=== PATIENT | female | born 1985 | race Caucasian/White ===

== ENCOUNTER 2020-01-11 07:01 | Outpatient (CLI) | payer BC, OTHER ==
[2020-01-12 12:59] LABS: SARS-CoV-2 MS2 Positive; SARS-CoV-2 N Gene Negative; SARS-CoV-2 S Gene Negative; SARS-CoV-2 by NAA Not Detected (NotDetected); SARS-CoV-2 orf1ab Negative
== END 2020-01-11 07:02 | disposition home or self-care (01) ==
LOC: LABBT 07:01
PROVIDERS: ATTEND Neurological Surgery
DX: M50.222 Other cervical disc displacement at C5-C6 level (principal); M79.602 Pain in left arm; Z20.828 Contact with and (suspected) exposure to other viral communicable diseases
CPT/HCPCS: 87635; U0003

== ENCOUNTER 2020-01-14 06:37 | Day surgery (SDC) | payer BC ==
[2020-01-13 10:17] VITALS: BMI 30.1
--- NOTE | 2020-01-13 14:02 | HP ---
HISTORY OF PRESENT ILLNESS: Ms. Noguera is a pleasant 34-year-old woman, presenting for evaluation of a cervical spinal problem at the recommendation of Dr. Ric Irby. Specifically, she is experiencing left upper extremity pain with numbness. I would best fit a left C6 radiculopathy. She has an MRI from [facility] that reveals a left-sided disk herniation that would fit this well. PAST MEDICAL HISTORY: Significant for hypertension. CURRENT MEDICATIONS: 1. Lisinopril. 2. Lexapro. 3. Robaxin. 4. Ritalin. 5. Diclofenac. ALLERGIES: NO KNOWN DRUG ALLERGIES. PAST SURGICAL HISTORY: 1. Hysterectomy. 2. Cardiac ablation for SVT. 3. Right shoulder rotator cuff repair. 4. Right foot navicular bone resection. 5. Right foot plantar fascia release. ASSESSMENT: Cervical radiculopathy. PLAN: Dr. Noguera met with the patient, reviewed imaging, advocated for C5-C6 ACDF. He explained to the patient about the risks, benefits, and alternatives to the procedure. The patient expressed understanding and elected to move forward with surgery as discussed. I do believe that the patient is mentally competent and capable of making medical decisions for herself. We will move forward with surgery as planned. Job ID: [id number]
[2020-01-14] MEDS ORDERED: Scopolamine 1.5 mg/72 hour Patch ONE (07:52)
[2020-01-14 08:13] LABS: Anion Gap 14 mmol/L (10-20); BUN (Urea Nitrogen) 11 mg/dL (7.0-18.7); Calc. Creatinine Clearance 130 mL/min (70-130); Calcium 9.2 mg/dL (7.8-10.44); Carbon Dioxide 26 mmol/L (22-29); Chloride 104 mmol/L (98-107); Estimated GFR-MDRD 90; Glucose 93 mg/dL (70-105); Potassium 3.7 mmol/L (3.5-5.1); Sodium 140 mmol/L (136-145)
[2020-01-14] MEDS ORDERED: Fentanyl 100 MCG/2 ML VIAL ONE ×4 (08:19→10:47)
[2020-01-14] MEDS ORDERED: Bupivacaine PF 0.5% 30 ML VIAL ONE (08:23)
[2020-01-14] MEDS ORDERED: SUGAMMADEX SODIUM 200 MG/2 ML VIAL ONE (09:40)
--- NOTE | 2020-01-14 10:14 | OP ---
DATE OF PROCEDURE: 01/14/2020 MANAGER SUMMER: Diego Viveros PA-C INDICATION: Pain. DIAGNOSIS: Cervical radiculopathy. PROCEDURES PERFORMED: Anterior cervical diskectomy and fusion C5-C6. ANESTHESIA: General. DESCRIPTION OF PROCEDURE: The patient was brought into the operating room and placed under general anesthesia. She was placed on table in supine position. A transverse incision was planned over the lateral aspect of the neck on the right. After prepping and draping and after an appropriate preoperative pause, the incision was created. The soft tissues were swept away from midline. A self-retaining retractor was placed in the wound for optimal exposure. After gaining access to the prevertebral space via blunt dissection, C-arm image was again performed to confirm appropriate location. An annulotomy was then performed at C5-C6 disk space. All disk material as well as anterior and posterior osteophytes were removed. After completing the decompression, a 6-mm lordotic PEEK cage packed with allograft and autograft material were placed within the interbody space. An anterior cervical plate was then fashioned to the front of spine and secured with a total of 4 fixed screws. The plate was from the interbody graft. The wound was irrigated. Hemostasis maintained throughout. The wound was then closed in anatomic layers, and a pressure dressing was applied. There were no known procedural complications. Job ID: [id number]
[2020-01-14] MEDS ORDERED: EPHEDRINE 25 MG/5 ML SYRINGE ONE (10:49)
[2020-01-14] MEDS ORDERED: PHENYLEPHRINE-NS 100 MCG/ML 10 ML SYRINGE ONE (10:49)
[2020-01-14] MEDS ORDERED: Lidocaine 1% PF 5 ML VIAL ONE (10:49)
[2020-01-14] MEDS ORDERED: Dexamethasone 20 MG/5 ML VIAL ONE (10:49)
[2020-01-14] MEDS ORDERED: Ondansetron PF 4 MG/2 ML Vial ONE (10:49)
[2020-01-14] MEDS ORDERED: Rocuronium Bromide 10 MG/ML (10ML VIAL) ONE (10:49)
[2020-01-14] MEDS ORDERED: PROPOFOL 200 MG/20 ML VIAL ONE (10:49)
[2020-01-14] MEDS ORDERED: diphenhydrAMINE 50 MG/ML VIAL ONE (11:32)
--- NOTE | 2020-01-16 20:54 | EKG ---
Test Reason : PREOP Blood Pressure : / mmHG Vent. Rate : 070 BPM Atrial Rate : 070 BPM P-R Int : 148 ms QRS Dur : 090 ms QT Int : 424 ms P-R-T Axes : 043 085 032 degrees QTc Int : 457 ms Normal sinus rhythm with sinus arrhythmia Normal ECG No previous ECGs available Confirmed by Efrain LEIJA ([id number]) on 01/16/2020 8:54:40 PM Referred By: ELICIA Confirmed By:Efrain LEIJA
== END 2020-01-14 12:25 | disposition home or self-care (01) ==
LOC: SDC 06:37
PROVIDERS: ATTEND Neurological Surgery
PROC: 0RG10A0 Fusion of Cervical Vertebral Joint with Interbody Fusion Device, Anterior Approach, Anterior Column, Open Approach (ICD-10-PCS; principal; 2020-01-14)
PROC: 0RT30ZZ Resection of Cervical Vertebral Disc, Open Approach (ICD-10-PCS; principal; 2020-01-14)
DX: M50.122 Cervical disc disorder at C5-C6 level with radiculopathy (principal); I10 Essential (primary) hypertension; Z79.899 Other long term (current) drug therapy
CPT/HCPCS: 76000; 80048; 93005; 93010; C1713; C1776; J0690; J1100; J1200; J2405; J2704; J3010; S0020

== ENCOUNTER 2021-05-25 12:47 | Outpatient (CLI) | payer BC | END 2021-05-25 12:48 | disposition home or self-care (01) | LOC: BICMRI 12:47 | PROVIDERS: ATTEND Nurse Practitioner Family | DX: M50.121 Cervical disc disorder at C4-C5 level with radiculopathy (principal); Z98.890 Other specified postprocedural states | CPT/HCPCS: 72141 ==